=== PATIENT | female | born 1960 | race African-American/Black ===

== ENCOUNTER 2016-05-12 09:20 | Outpatient (CLI) | payer BC | END 2016-05-12 09:21 | disposition home or self-care (01) | DX: E11.9 Type 2 diabetes mellitus without complications (principal); E78.5 Hyperlipidemia, unspecified; I10 Essential (primary) hypertension ==

== ENCOUNTER 2016-11-19 15:35 | Outpatient (CLI) | payer BC ==
[2016-11-19 13:47] LABS: ALBUMIN/GLOBULIN RATIO 1.6 (1.0-2.2); BILIRUBIN,TOTAL 0.5 mg/dL (0.2-1.0); BUN - BLOOD UREA NITROGEN 18 mg/dL (6-20); CALCIUM 9.5 mg/dL (8.5-10.3); CARBON DIOXIDE - CO2 27 mmol/L (21-32); CHLORIDE 105 mmol/L (101-111); CHOL/HDL RATIO 3.2 (<4.4); CHOLESTEROL 216 mg/dL; CREATININE 0.8 mg/dL (0.4-1.0); GFR - MDRD 90 (>89); GLUCOSE 98 mg/dL (70-100); HDL CHOLESTEROL 67 mg/dL; POTASSIUM 3.9 mmol/L (3.5-5.0); SODIUM 139 mmol/L (135-145); TOTAL PROTEIN 8.2 g/dL (6.7-8.2); TRIGLYCERIDES 79 mg/dL; VLDL CHOLESTEROL 16 mg/dL
[2016-11-19 13:54] LABS: HEMOGLOBIN A1C 0.57 g/dL
== END 2016-11-19 15:36 | disposition home or self-care (01) ==
LOC: LAB.WCP 15:35
PROVIDERS: ATTEND Family Medicine
DX: R63.4 Abnormal weight loss (principal); E78.5 Hyperlipidemia, unspecified; E11.9 Type 2 diabetes mellitus without complications; I10 Essential (primary) hypertension
CPT/HCPCS: 36415; 80053; 80061; 82043; 83036

== ENCOUNTER 2017-01-31 13:09 | Observation (INO) | payer BC ==
[2017-01-31] MEDS ORDERED: NITROGLYCERIN SL 0.4 MG TABLET SL STA (14:16)
[2017-01-31] MEDS ORDERED: ASPIRIN CHEW 81 MG TABLET PO STA (14:16)
--- NOTE | 2017-01-31 14:21 | ED Physician Documentation ---
History of Present Illness - Stated complaint Stated Complaint: CHEST PX - Chief complaint Chief Complaint: Cardiac - Additonal information Additional information: hx from pt 56 f hx HTN DM and fhx CAD in 6th decade to ED with chest tightness onset 9 Am while at her desk at work 08/23 severity when i saw here no SOA NV diaphoresis had some ant R kumar discomfort and cramping yesterday but that resolved with OTC mm cramp med she is worried about a blood clot or heart attack Review of Systems Constitutional: denies: Fever, Chills Cardiac: reports: Chest pain / pressure Respiratory: denies: Dyspnea, Cough GI: denies: Abdominal Pain, Nausea, Vomiting Neurologic: denies: Generalized weakness Endocrine: denies: Easy bruising / bleeding Immunocompromised: denies: Immunocompromised PD PAST MEDICAL HISTORY - Past Medical History Past Medical History: Yes Cardiovascular: Hypertension, High cholesterol Respiratory: Pneumonia Neuro: None Endocrine/Autoimmune: Type 2 diabetes GI: None : None HEENT: None Psych: Claustrophobia Musculoskeletal: Osteoarthritis Derm: None - Past Surgical History General: Cholecystectomy 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 - Present Medications Home Medications: Ambulatory Orders Medication Instructions Recorded Confirmed Lisinopril 10 mg PO DAILY 02/21/14 01/31/17 Metformin HCl [Glucophage] 500 mg PO BID 02/21/14 01/31/17 - Allergies Allergies/Adverse Reactions: Allergies Allergy/AdvReac Type Severity Reaction Status Date / Time codeine AdvReac Severe Lethargic/ Verified 01/31/17 13:29 Headaches - Social History Does the pt smoke?: No Smoking Status: Former smoker Does the pt drink ETOH?: Yes ETOH Use: Wine, Liquor Does the pt have substance abuse?: No - Immunizations Immunizations are current?: Yes PD ED PE NORMAL - Vitals Vital signs reviewed: Yes - General General: Alert and oriented X 3 - HEENT HEENT: PERRL - Neck Neck: Supple, no meningeal sign - Cardiac Cardiac: RRR, Other (slihgt murmur RUSB) - Respiratory Respiratory: No respiratory distress, Clear bilaterally - Abdomen Abdomen: Soft, Non tender - Derm Derm: Normal color - Extremities Extremities: No deformity, No tenderness to palpate, Normal ROM s pain, No edema , No calf tenderness / cord - Neuro Neuro: Alert and oriented X 3 Results - Vitals Vitals: Vital Signs - 24 hr 01/31/17 01/31/17 01/31/17 13:15 13:52 14:02 Temperature 36.2 C L 36.1 C L Heart Rate 69 73 Respiratory 16 18 Rate Blood Pressure 158/80 H 142/76 H Blood Pressure 148/95 H [Right] O2 Saturation 100 100 01/31/17 01/31/17 01/31/17 14:27 14:35 14:40 Temperature Heart Rate 76 77 85 Respiratory Rate Blood Pressure 143/84 H 142/77 H 129/83 H Blood Pressure [Right] O2 Saturation 01/31/17 01/31/17 14:45 16:17 Temperature 37.0 C Heart Rate 78 70 Respiratory 16 Rate Blood Pressure 127/78 140/70 H Blood Pressure [Right] O2 Saturation 99 Oxygen O2 Source [Without Activity] Room air O2 Source Room air - EKG (time done) 1317 Rate: Rate (enter#) (69) Rhythm: NSR [place]: Normal Intervals: Normal CO Ischemia: Normal ST segments - Labs Labs: Laboratory Tests 01/31/17 01/31/17 01/31/17 14:23 14:23 14:23 WBC 8.6 RBC 4.28 Hgb 12.1 Hct 36.3 L MCV 84.9 MCH 28.4 MCHC 33.4 RDW 13.6 Plt Count 312 MPV 8.5 Neut # 6.1 Lymph # 1.9 Bacon # 0.4 Eos # 0.1 Baso # 0.1 Absolute Nucleated RBC 0.00 Nucleated RBC % 0.0 D-Dimer Sodium 139 Potassium 3.8 Chloride 100 L Carbon Dioxide 24 Anion Gap 15.0 H BUN 15 Creatinine 0.7 Estimated GFR (MDRD) 105 Glucose 91 Calcium 10.0 Total Bilirubin 0.7 AST 18 ALT 16 Alkaline Phosphatase 54 Troponin I < 0.04 Total Protein 8.5 H Albumin 5.1 Globulin 3.4 Albumin/Globulin Ratio 1.5 Lipase 39 01/31/17 14:23 WBC RBC Hgb Hct MCV MCH MCHC RDW Plt Count MPV Neut # Lymph # Bacon # Eos # Baso # Absolute Nucleated RBC Nucleated RBC % D-Dimer < 200.0 L Sodium Potassium Chloride Carbon Dioxide Anion Gap BUN Creatinine Estimated GFR (MDRD) Glucose Calcium Total Bilirubin AST ALT Alkaline Phosphatase Troponin I Total Protein Albumin Globulin Albumin/Globulin Ratio Lipase PD MEDICAL DECISION MAKING - ED course ED course: EKG s acute ischemia but numerous risk factors and HEART score 5 - will obs for LISSETH and stress age > 50 so cannot PERC but neg d dimer so doubt PE pain gone after nitro will admit tele obs Departure - Departure Disposition: ED Place in Observation Clinical Impression: Chest pain, rule out acute myocardial infarction Condition: Good
[2017-01-31 14:32] LABS: BASOPHILS # (AUTO) 0.1 10^3/uL (0.0-0.1); BASOPHILS % (AUTO) 0.9 %; EOSINOPHILS # (AUTO) 0.1 10^3/uL (0.0-0.7); HCT - HEMATOCRIT 36.3 % (37.0-47.0); HGB - HEMOGLOBIN 12.1 g/dL (12.0-16.0); LYMPHOCYTES # (AUTO) 1.9 10^3/uL (1.5-3.5); MEAN CORPUSCULAR HEMOGLOBIN 28.4 pg (27.0-31.0); MEAN CORPUSCULAR HGB CONC 33.4 g/dL (32.0-36.0); MEAN CORPUSCULAR VOLUME 84.9 fL (81.0-99.0); MEAN PLATELET VOLUME 8.5 fL (7.9-10.8); MONOCYTES # (AUTO) 0.4 10^3/uL (0.0-1.0); NEUTROPHILS # (AUTO) 6.1 10^3/uL (1.5-6.6); NEUTROPHILS % (AUTO) 71.1 %; RED BLOOD COUNT 4.28 10^6/uL (4.20-5.40); RED CELL DISTRIBUTION WIDTH 13.6 % (12.0-15.0); UNCORRECTED WHITE BLOOD COUNT 8.6 x10^3/uL; WHITE BLOOD COUNT 8.6 x10^3/uL (4.8-10.8)
[2017-01-31 14:46] LABS: ALBUMIN/GLOBULIN RATIO 1.5 (1.0-2.2); BILIRUBIN,TOTAL 0.7 mg/dL (0.2-1.0); CREATININE 0.7 mg/dL (0.4-1.0); POTASSIUM 3.8 mmol/L (3.5-5.0); TOTAL PROTEIN 8.5 g/dL (6.7-8.2)
--- NOTE | 2017-01-31 16:32 | XRAY Preliminary Report ---
Exam: XR CHEST 1 VIEW IMPRESSION: Normal single view chest. [facility] SITE ID: [id number]
--- NOTE | 2017-01-31 16:34 | XRAY Report ---
EXAM: CHEST RADIOGRAPHY EXAM DATE: 01/31/2017 04:26 PM. CLINICAL HISTORY: Chest pain and shortness of breath. COMPARISON: None. TECHNIQUE: 1 view. FINDINGS: Lungs/Pleura: No focal opacities evident. No pleural effusion. No pneumothorax. Mediastinum: Within exam limitations, the cardiomediastinal contour is normal. Other: No bony abnormality identified. IMPRESSION: Normal single view chest. [facility] Referring Provider Line: [phone] SITE ID: [id number]
[2017-01-31] MEDS ORDERED: NITROGLYCERIN SL 0.4 MG TABLET SL PRN (16:59)
[2017-01-31] MEDS ORDERED: ONDANSETRON 4 MG/2 ML VIAL IVP PRN (17:05)
[2017-01-31] MEDS ORDERED: ACETAMINOPHEN 325 MG TABLET PO PRN (17:05)
[2017-01-31] MEDS ORDERED: SODIUM CHLORIDE FLUSH 0.9% 10 ML SYRINGE IVP PRN (17:05)
--- NOTE | 2017-01-31 17:23 | HISTORY & PHYSICAL EXAMINATION ---
Chief Complaint - Chief Complaint Chief Complaint: chest tightness History of Present Illness - Admitted From Admitted From:: ER - History Obtained From History obtained from: Pt - History of Present Illness HPI Comment/Other: This is a 56-year-old Sara Turkish female with a past medical history significant for HTN, DM2, HLD, CAD, who present ER for complaints of chest pain and chest tightness. Pt state she started her regular work at morning around 9 am, she begin to have chest pain at her left breast area. Her pain at pain scale is 7/10. The pain is not radiated to other locations. Nitro given 3 times and Aspirin 324 mg did help pt release her chest pain per pt's state. She state she did feel mild difficult to breathing as well when she had chest pain. Pt denies nausea, vomiting, diaphoresis is associated with her chest pain. Pt denies other symptoms. Initiate Troponin and EKG are unremarkable. CXR is no acute finding. D-Dimer is unremarkable. Lab test in the ER are unremarkable. Pt is admitted in observation floor for R/O IL. 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 She had one daughter at . She with her and lived at [facility]. Living arrangement: At home Living Situation: With spouse/s.o. - Substance History Use: Uses substance without health or social issues: NONE Abuse: Recurrent use of substance despite neg consequences: NONE Dependence: Experiences withdrawal or developed tolerances: NONE - POLST POLST Status: Full Code Meds/Allgy - Home Medications Home Medications: Ambulatory Orders Medication Instructions Recorded Confirmed Lisinopril 20 mg PO DAILY 02/21/14 01/31/17 Metformin HCl [Metformin HCl ER] 500 mg PO BID 01/31/17 01/31/17 - Allergies Allergies/Adverse Reactions: Allergies Allergy/AdvReac Type Severity Reaction Status Date / Time codeine AdvReac Severe Lethargic/ Verified 01/31/17 13:29 Headaches Review of Systems - Constitutional Constitutional: denies: Fatigue, Fever, Chills, Malaise, Weakness, Poor appetite , Diaphoresis, Night sweats - Eyes Eyes: denies: Pain, Irritation, Amaurosis, Blurred vision, Spots in vision, Field loss, Vision loss, Dipolpia - Ears, Nose & Throat Ears, Nose & Throat: denies: Ear pain, Hearing loss, Hearing aids, Tinnitus, Vertigo, Nasal pain, Nasal discharge, Nosebleeds, Nasal congestion, Dentures, Sore throat, Mouth lesions, Bleeding gums - Cardiovascular Cariovascular: reports: Chest pain. denies: Irregular heart rate, Palpitations , Edema, Lightheadedness, Syncope, Exertional dyspnea, Decr. exercise tolerance - Respiratory Respiratory: denies: Cough, Sputum production, Wheezing, Snoring, Hemoptysis, Orthopnea, SOB at rest, SOB with exertion, Apnea - Gastrointestinal Gastrointestinal: denies: Abdominal pain, Abdominal distention, Constipation, Diarrhea, Change in bowel habits, Rectal bleeding, Black stools, Bloody stools, Nausea, Vomiting, Boaz blood emesis, Coffee grounds emesis, Reflux/heartburn, Bloating, Poor appetite - Genitourinary Genitourinary: denies: Dysuria, Frequency, Urgency, Hematuria, Incontinence, Flank pain, Nocturia, Urethral discharge - Musculoskeletal Musculoskeletal: denies: Muscle pain, Back pain, Muscle aches, Stiffness, Limited range of motion, Muscle weakness, Gout, Joint pain - Integumentary Integumentary: denies: Rash, Pruritis, Lesions, Dryness, Lumps, Acne, Pigment changes - Neurological Neurological: denies: General weakness, Focal weakness, Headache, Dizziness, Numbness, Memory problems, Pre-existing deficit, Abnormal gait, Seizures, Incoordination, Slurred speech - Psychiatric Psychiatric: denies: Depression, Anxiety, Suicidal, Delusions, Hallucinations, Homicidal - Endocrine Endocrine: denies: Polyuria, Polydypsia, Polyphagia, Intolerance to cold, Intolerance to heat - Hematologic/Lymphatic Hematologic/Lymphatic: denies: Anemia, Bruising, Petechiae, Blood clots, Lymphadenopathy, Bleeding tendencies Exam - Vital Signs Reviewed Vital Signs: Yes Vital Signs: Vital Signs x48h Temp Pulse Resp BP BP Pulse Ox 01/31/17 16:17 37.0 C 70 16 140/70 H 99 01/31/17 14:45 78 127/78 01/31/17 14:40 85 129/83 H 01/31/17 14:35 77 142/77 H 01/31/17 14:27 76 143/84 H 01/31/17 14:02 36.1 C L 73 18 142/76 H 100 01/31/17 13:52 148/95 H 01/31/17 13:15 36.2 C L 69 16 158/80 H 100 - Physical Exam General Appearance: positive: No acute distress, Alert. negative: Lethargic Eyes Bilateral: positive: Normal inspection, PERRL, No lid inflammation, Conjunctivae nml ENT: positive: ENT inspection nml, Pharynx nml, No signs of dehydration. negative: Purulent nasal drainage, Pharyngeal erythema, Oral lesions Neck: positive: Nml inspection, Thyroid nml, No JVD, Trachea midline. negative : Thyromegaly, Lymphadenopathy (R), Lymphadenopathy (L), Stiff neck, Carotid bruit, Swelling/bruising, Tracheal deviation Respiratory: positive: Chest non-tender, No respiratory distress, Breath sounds nml. negative: Wheezes, Rales, Rhonchi Cardiovascular: positive: Regular rate & rhythm, No murmur, No gallop. negative : Irregularly irregular, Extrasystoles, Tachycardia, Bradycardia, Systolic murmur, Diastolic murmur Peripheral Pulses: positive: 2+ Abdomen: positive: Non-tender, No organomegaly, Nml bowel sounds, No distention. negative: Tenderness, Guarding, Rebound, Abnml bowel sounds Back: positive: Nml inspection. negative: CVA tenderness (R), CVA tenderness (L ) Skin: positive: Color nml, No rash, Warm, Dry. negative: Cyanosis, Diaphoresis , Pallor Extremities: positive: Non-tender, Full ROM, Nml appearance. negative: Pedal edema, Calf tenderness, Joint swelling, Heaven's sign/cords Neurologic/Psychiatric: positive: Oriented x3, Motor nml, Sensation nml, Mood/ affect nml. negative: Weakness, Sensory loss, Facial droop, Slurred/abnml speech, Depressed mood/affect Conclusion/Plan - Problem List (1) Chest pain, rule out acute myocardial infarction Conclusion/Plan: pt with risk factor of HTN, DM2, HLD. Aspirin and Nitro release pt's chest pain Troponin serial Nitro PRN Aspirin 81 mg daily, pt was given 325 mg in ER on tele, vital monitor ECHO stress test, pt with significant risk factor NPO after midnight for stress test (2) HTN (hypertension) Conclusion/Plan: stable, resume home meds vital monitor (3) DM2 (diabetes mellitus, type 2) Conclusion/Plan: Hold Metformin start slide scale, hypoglycemia protocol check A1C (4) Hyperlipidemia Conclusion/Plan: recheck lipid panel resume of home meds Atorvastatin (5) DVT prophylaxis Conclusion/Plan: SCD and lovenox (6) Full code status Conclusion/Plan: pt request full code - Lab Results Fish Bones: 01/31/17 14:23 01/31/17 14:23 Issues/Core Measures - Anticipated LOS Anticipated Stay Length: Less than 2 midnights (less than two midnights expected.) - [facility] Requirement for [facility] I expect patient to be DC'd or transferred within 96 hours.: Yes
[2017-01-31 17:38] LABS: HEMOGLOBIN A1C 0.57 g/dL
[2017-01-31] MEDS: SODIUM CHLORIDE 0.9% 1,000 ML IV SCH (18:57)
[2017-01-31] MEDS: SODIUM CHLORIDE FLUSH 0.9% 10 ML SYRINGE IVP SCH (19:00)
[2017-01-31] MEDS: INSULIN ASPART 300 UNIT/3 ML PEN SUBQ SCH (21:59)
[2017-02-01 05:26] LABS: BASOPHILS % (AUTO) 0.7 %; EOSINOPHILS # (AUTO) 0.1 10^3/uL (0.0-0.7); EOSINOPHILS % (AUTO) 1.5 %; HCT - HEMATOCRIT 34.9 % (37.0-47.0); HGB - HEMOGLOBIN 11.2 g/dL (12.0-16.0); LYMPHOCYTES # (AUTO) 1.9 10^3/uL (1.5-3.5); LYMPHOCYTES % (AUTO) 32.5 %; MEAN CORPUSCULAR HEMOGLOBIN 27.5 pg (27.0-31.0); MEAN CORPUSCULAR VOLUME 85.9 fL (81.0-99.0); MONOCYTES # (AUTO) 0.3 10^3/uL (0.0-1.0); MONOCYTES % (AUTO) 5.5 %; NEUTROPHILS # (AUTO) 3.5 10^3/uL (1.5-6.6); NEUTROPHILS % (AUTO) 59.8 %; RED BLOOD COUNT 4.06 10^6/uL (4.20-5.40); RED CELL DISTRIBUTION WIDTH 13.5 % (12.0-15.0); UNCORRECTED WHITE BLOOD COUNT 5.8 x10^3/uL; WHITE BLOOD COUNT 5.8 x10^3/uL (4.8-10.8)
[2017-02-01 05:40] LABS: ALBUMIN/GLOBULIN RATIO 1.2 (1.0-2.2); BILIRUBIN,TOTAL 0.9 mg/dL (0.2-1.0); BUN - BLOOD UREA NITROGEN 12 mg/dL (6-20); CARBON DIOXIDE - CO2 24 mmol/L (21-32); CHLORIDE 107 mmol/L (101-111); CHOL/HDL RATIO 3.7 (<4.4); CHOLESTEROL 169 mg/dL; CREATININE 0.7 mg/dL (0.4-1.0); GFR - MDRD 105 (>89); GLUCOSE 104 mg/dL (70-100); HDL CHOLESTEROL 46 mg/dL; LDL/HDL RATIO 2.3 (<4.4); POTASSIUM 3.8 mmol/L (3.5-5.0); SODIUM 141 mmol/L (135-145); TOTAL PROTEIN 7.1 g/dL (6.7-8.2); TRIGLYCERIDES 78 mg/dL; VLDL CHOLESTEROL 16 mg/dL
[2017-02-01] MEDS: SODIUM CHLORIDE FLUSH 0.9% 10 ML SYRINGE IVP SCH ×2 (06:08→14:18)
[2017-02-01] MEDS: SODIUM CHLORIDE 0.9% 1,000 ML IV SCH (06:24)
[2017-02-01] MEDS ORDERED: GI COCKTAIL 120 ML BOTTLE PO ONE (08:20)
[2017-02-01] MEDS: INSULIN ASPART 300 UNIT/3 ML PEN SUBQ SCH ×2 (08:46→14:17)
[2017-02-01] MEDS ORDERED: POLYETHYLENE GLYCOL 3350 17 GM PACKET PO SCH (09:00)
[2017-02-01] MEDS ORDERED: ASPIRIN CHEW 81 MG TABLET PO SCH (09:00)
[2017-02-01] MEDS ORDERED: PANTOPRAZOLE 40 MG TABLET PO SCH (09:00)
[2017-02-01] MEDS ORDERED: FAMOTIDINE 20 MG TABLET PO SCH (09:00)
[2017-02-01] MEDS ORDERED: LISINOPRIL 5 MG TABLET PO SCH (09:00)
[2017-02-01] MEDS ORDERED: ENOXAPARIN 40 MG/0.4 ML SYRINGE SUBQ SCH (09:00)
--- NOTE | 2017-02-01 12:38 | Discharge Plan ---
Discharge Plan Disposition: Home, Self Care Condition: Good Prescriptions: Pantoprazole [Protonix] 40 mg PO BID #30 tablet Diet: Diabetic Activity Restrictions: No Restrictions Shower Restrictions: No Driving Restrictions: No Weight Bearing: Full Weight Additional Instructions or Follow Up instructions: You were admitted overnight for rule out myocardial infarction. All of your lab results were negative. The Myocardial perfusion test was negative for ischemia and you passed your treadmill stress test with an optimal heart rate. Please see PCP as a follow up to this hospital stay. Take your newly prescribed proton pump inhibitor to control heartburn symptoms. No Smoking: If you smoke, Please STOP! Call for help. Follow-up with: Refugio Stevens MD [Primary Care Provider] -
--- NOTE | 2017-02-01 12:38 | DISCHARGE SUMMARY ---
Discharge Summary Admit Date: 01/31/17 Discharge Date: 02/01/17 Discharging Provider: RENNY Sánchez Primary Care Provider: Isael Stevens Code Status: Attempt Resuscitation Condition at Discharge: Good Discharge Disposition: Home, Self Care - DIAGNOSES Admission Diagnoses: Chest pain, unspecified (R07.9) Essential (primary) hypertension (I10) Type 2 diabetes mellitus without complications (E11.9) Hyperlipidemia, unspecified (E78.5) Discharge Diagnoses with Status of Each Condition: Chest pain (R07.9)-ongoing, ruled out for cardiac ischemia, stable and controlled. Heartburn (R12) -ongoing, controlled. HTN (hypertension) (I10) stable controlled, medically managed. DM2 (diabetes mellitus, type 2) (E11.9) stable, controlled medically and diet controlled. Hyperlipidemia (E78.5)-ongoing, diet and medically managed. - HPI History of Present Illness: Dahiana Quintero is a 56-year-old Sara Bangladeshi female with a past medical history of HTN, DM2, HLD, CAD, who presented to the ER for complaints of chest pain and chest tightness. Patient claims she started her regular work day around 9 am, when she began to have chest pain at her left breast area, without radiation. She rated her pain as 7 out of 10. Nitro was given 3 times and Aspirin 324 mg. She did have mild relief. She admitted to mild SOB. Patient denies nausea, vomiting, diaphoresis is associated with her chest pain. Troponin and EKG are unremarkable. CXR is no acute finding. D-Dimer is unremarkable. Lab tests in the ER are unremarkable. Patient will be admitted in observation for rule out MD. - HOSPITAL COURSE Hospital Course: Patient had an uneventful night with no notable telemetry changes. Negative troponins, normal echocardiogram and negative stress, myocardial perfusion scan. Patient has ongoing heartburn, so a PPI was prescribed. She was discharged home with with only mild symptoms. - ALLERGIES Allergies/Adverse Reactions: Allergies Allergy/AdvReac Type Severity Reaction Status Date / Time zoltan Vicenteac Severe Lethargic/ Verified 01/31/17 13:29 Headaches - MEDICATIONS Home Medications: Ambulatory Orders Medication Instructions Recorded Confirmed Lisinopril 20 mg PO DAILY 02/21/14 01/31/17 Metformin HCl [Metformin HCl ER] 500 mg PO BID 01/31/17 01/31/17 Pantoprazole [Protonix] 40 mg PO BID #30 tablet 02/01/17 - PHYSICAL EXAM AT DISCHARGE General Appearance: positive: No acute distress, Alert Eyes Bilateral: positive: Normal inspection, PERRL ENT: positive: ENT inspection nml, Pharynx nml, No signs of dehydration Neck: positive: Nml inspection, Thyroid nml, No JVD, Trachea midline Respiratory: positive: Chest non-tender, No respiratory distress, Breath sounds nml Cardiovascular: positive: Regular rate & rhythm, No murmur, No gallop Peripheral Pulses: positive: 2+ Abdomen: positive: Non-tender, No organomegaly, Nml bowel sounds, No distention Back: positive: Nml inspection Skin: positive: Color nml, No rash, Warm, Dry Extremities: positive: Non-tender, Full ROM, Nml appearance, No pedal edema Neurologic/Psychiatric: positive: Oriented x3, CN's nml (2-12), Motor nml, Sensation nml, Mood/affect nml Reflexes: Bicep (R): 3+, Bicep (L): 3+ - LABS Result Diagrams: 02/01/17 04:31 02/01/17 04:31 - DIAGNOSTIC IMAGING Diagnostic Imaging Results: Final report reviewed Diagnostic Imaging Results Comments: Myocardial perfusion stress test 02/01/17: FINDINGS: Perfusion images: Left ventricular chamber size is normal at rest and unchanged at stress. No convincing fixed perfusion deficits. No convincing reversible perfusion deficits. Gated images: No focal wall motion abnormality. The left ventricular ejection fraction is estimated at 73% (normal > 50%). IMPRESSION: 1. No convincing reversible perfusion deficits to indicate stress-induced ischemia. 2. No convincing fixed perfusion deficits. 3. Left ventricular ejection fraction of 73% (normal > 50%). 4. No focal wall motion abnormalities. Chest x-ray 01/31/17: FINDINGS: Lungs/Pleura: No focal opacities evident. No pleural effusion. No pneumothorax. Mediastinum: Within exam limitations, the cardiomediastinal contour is normal. Other: No bony abnormality identified. IMPRESSION: Normal single view chest. Echocardiogram 02/01/17: LV is normally sized with and EF of 70-75%. Trace mitral/tricuspid regurg, normal RV systolic pressure <35mmHg. The RVSP at rest is 26mmHg. Trace to mild (+1) pulmonic regurg. The interatrial septum appears normal. - FOLLOW UP Follow Up: You were admitted overnight for rule out myocardial infarction. All of your lab results were negative. The Myocardial perfusion test was negative for ischemia and you passed your treadmill stress test with an optimal heart rate. Please see PCP as a follow up to this hospital stay. Take your newly prescribed proton pump inhibitor to control heartburn symptoms. Patient provided with a work excuse note and teaching re: GERD. - TIME SPENT Time Spent in Discharge (Minutes): 60
--- NOTE | 2017-02-01 14:18 | Nuclear Medicine Prelim Report ---
Exam: NM MYOCARDIAL PERFUSION STR/RST IMPRESSION: 1. No convincing reversible perfusion deficits to indicate stress-induced ischemia. 2. No convincing fixed perfusion deficits. 3. Left ventricular ejection fraction of 73% (normal > 50%). 4. No focal wall motion abnormalities. [facility] SITE ID: [id number]
--- NOTE | 2017-02-01 14:21 | Nuclear Medicine Report ---
EXAM: SINGLE-ISOTOPE EXERCISE STRESS TEST. SINGLE-ISOTOPE AND ONE-DAY REST/STRESS MYOCARDIAL PERFUSION SCAN S WITH TOMOGRAPHIC IMAGING, QUANTITATIVE ANALYSIS, WALL MOTION ANALYSIS AND CALCULATION OF EJECTION F RACTION. EXAM DATE: 02/01/2017 10:46 AM. CLINICAL HISTORY: Chest pain. COMPARISON: None. TECHNIQUE: A rest myocardial perfusion scan was done with tomography after the intravenous administration of 9.5 mCi Tc-99m sestamibi. After an appropriate delay, a treadmill exercise stress was performed according to department protoco l. The patient exercised for 6 minutes and 48 seconds. The maximum heart rate was 165 bpm, which was 90% of the maximum predicted heart rate of 140 bpm. At approximately peak heart rate, 42.7 mCi of Tc- 99m sestamibi was injected for stress myocardial perfusion scan. Motion correction was applied when a ppropriate. Gated tomographic images were obtained for wall motion analysis and computation of left ventricular e jection fraction. FINDINGS: Perfusion images: Left ventricular chamber size is normal at rest and unchanged at stress. No convincing fixed perfusion deficits. No convincing reversible perfusion deficits. Gated images: No focal wall motion abnormality. The left ventricular ejection fraction is estimated at 73% (normal > 50%). IMPRESSION: 1. No convincing reversible perfusion deficits to indicate stress-induced ischemia. 2. No convincing fixed perfusion deficits. 3. Left ventricular ejection fraction of 73% (normal > 50%). 4. No focal wall motion abnormalities. [facility] Referring Provider Line: [phone] SITE ID: [id number]
[2017-02-01 15:52] VITALS: BP 129/72
--- NOTE | 2017-02-01 18:31 | CARDIAC PROCEDURE NOTE ---
[address] [address] Cardiac Procedure Note Patient: YAYO VICENTE Admit Date: 01/31/17 Discharge Date: 02/01/17 DOS: 02/01/2017 Physician: Esmer Amado MD LOCATION: Observation. DATE OF PROCEDURE 02/01/2017. After signing informed consent, the patient underwent a treadmill stress test with myocardial perfusion imaging. Resting EKG: Normal sinus rhythm and within normal limits. Patient exercised for 7 minutes on a [id number] standard Jluis protocol. The patient developed mild to moderate shortness of breath. Patient had 1/10 chest pain before test, which was no different during the entire exercise, it did not increase. Patient achieved 8 METS. Resting heart rate 80 with sinus arrhythmia. Peak heart rate 150 (91% predicted maximum heart rate for age). Resting blood pressure 140/80. Peak blood pressure 180/80. EKG at peak: No ischemic changes. IMPRESSION 1. Good exercise tolerance. 2. Normal exercise stress test by EKG criteria to 91% predicted maximum heart rate for age. NUCLEAR IMAGES: Reported separately. Esmer Amado MD [facility] TD: 02/01/2017 15:07 [facility] [place]
== END 2017-02-01 15:59 | disposition home or self-care (01) ==
LOC: ED 13:09 → OBS 17:05
PROVIDERS: ADMIT Nurse Practitioner Gerontology; ATTEND Nurse Practitioner
DX: R07.89 Other chest pain (principal); R12 Heartburn; I10 Essential (primary) hypertension; E11.9 Type 2 diabetes mellitus without complications; E78.5 Hyperlipidemia, unspecified; Z82.49 Family history of ischemic heart disease and other diseases of the circulatory system; Z87.01 Personal history of pneumonia (recurrent); Z79.84 Long term (current) use of oral hypoglycemic drugs; Z87.891 Personal history of nicotine dependence; Z86.79 Personal history of other diseases of the circulatory system
CPT/HCPCS: 36415; 71010; 78452; 80053; 80061; 83036; 83690; 84484; 85025; 85379; 93005; 93017; 93306; 99218; 99284; A9270; A9500; 99283

== ENCOUNTER 2017-05-26 17:13 | Outpatient (CLI) | payer BC ==
[2017-05-26 12:42] LABS: ALBUMIN 4.8 g/dL (3.2-5.5); ALBUMIN/GLOBULIN RATIO 1.6 (1.0-2.2); ALKALINE PHOSPHATASE 45 IU/L (42-121); ALT ALANINE AMINOTRANSFERASE 11 IU/L (10-60); AST ASPARTATE AMINOTRANSFERASE 21 IU/L (10-42); BILIRUBIN,TOTAL 0.4 mg/dL (0.2-1.0); BUN - BLOOD UREA NITROGEN 14 mg/dL (6-20); CALCIUM 9.4 mg/dL (8.5-10.3); CARBON DIOXIDE - CO2 26 mmol/L (21-32); CHLORIDE 105 mmol/L (101-111); CHOL/HDL RATIO 4.1 (<4.4); CHOLESTEROL 207 mg/dL; CREATININE 0.8 mg/dL (0.4-1.0); GFR - MDRD 90 (>89); GLUCOSE 126 mg/dL (70-100); HDL CHOLESTEROL 50 mg/dL; LDL CHOLESTEROL,CALCULATED 143 mg/dL; LDL/HDL RATIO 2.9 (<4.4); SODIUM 138 mmol/L (135-145); TOTAL PROTEIN 7.8 g/dL (6.7-8.2); VLDL CHOLESTEROL 14 mg/dL
[2017-05-26 15:27] LABS: HB2 TOTAL 12.9 g/dL; HEMOGLOBIN A1C 0.58 g/dL; HEMOGLOBIN A1C % 6.3 % (4.6-6.2)
== END 2017-05-26 17:14 | disposition home or self-care (01) ==
LOC: LAB.WCP 17:13
PROVIDERS: ATTEND Family Medicine
DX: E78.5 Hyperlipidemia, unspecified (principal); E11.9 Type 2 diabetes mellitus without complications; I10 Essential (primary) hypertension
CPT/HCPCS: 36415; 80053; 80061; 82043; 83036; 83721

== ENCOUNTER 2017-11-24 08:31 | Outpatient (CLI) | payer BC ==
[2017-11-24 13:00] LABS: ALBUMIN 4.3 g/dL (3.2-5.5); ALBUMIN/GLOBULIN RATIO 1.4 (1.0-2.2); ALKALINE PHOSPHATASE 59 IU/L (42-121); ALT ALANINE AMINOTRANSFERASE 20 IU/L (10-60); AST ASPARTATE AMINOTRANSFERASE 23 IU/L (10-42); BILIRUBIN,TOTAL 0.6 mg/dL (0.2-1.0); BUN - BLOOD UREA NITROGEN 15 mg/dL (6-20); CALCIUM 9.2 mg/dL (8.5-10.3); CARBON DIOXIDE - CO2 22 mmol/L (21-32); CHLORIDE 105 mmol/L (101-111); CHOL/HDL RATIO 3.7 (<4.4); CHOLESTEROL 180 mg/dL; CREATININE 0.6 mg/dL (0.4-1.0); GFR - MDRD 125 (>89); GLUCOSE 109 mg/dL (70-100); HDL CHOLESTEROL 49 mg/dL; LDL CHOLESTEROL,CALCULATED 116 mg/dL; LDL/HDL RATIO 2.4 (<4.4); SODIUM 136 mmol/L (135-145); TOTAL PROTEIN 7.4 g/dL (6.7-8.2); VLDL CHOLESTEROL 15 mg/dL
[2017-11-24 13:29] LABS: HB2 TOTAL 12.2 g/dL; HEMOGLOBIN A1C 0.52 g/dL; HEMOGLOBIN A1C % 6.1 % (4.6-6.2)
== END 2017-11-24 08:32 | disposition home or self-care (01) ==
LOC: LAB.WCP 08:31
PROVIDERS: ATTEND Family Medicine
DX: E78.5 Hyperlipidemia, unspecified (principal); E11.9 Type 2 diabetes mellitus without complications; I10 Essential (primary) hypertension
CPT/HCPCS: 36415; 80053; 80061; 82043; 83036; 83721

== ENCOUNTER 2018-06-07 08:00 | Outpatient (CLI) | payer BC ==
[2018-06-07 15:25] LABS: BASOPHILS % (AUTO) 0.3 %; EOSINOPHILS # (AUTO) 0.1 10^3/uL (0.0-0.7); EOSINOPHILS % (AUTO) 1.1 %; HGB - HEMOGLOBIN 12.2 g/dL (12.0-16.0); LYMPHOCYTES # (AUTO) 1.7 10^3/uL (1.5-3.5); LYMPHOCYTES % (AUTO) 31.1 %; MEAN CORPUSCULAR HEMOGLOBIN 27.3 pg (27.0-31.0); MEAN CORPUSCULAR VOLUME 85.2 fL (81.0-99.0); MEAN PLATELET VOLUME 10.1 fL (7.9-10.8); MONOCYTES # (AUTO) 0.3 10^3/uL (0.0-1.0); NEUTROPHILS # (AUTO) 3.3 10^3/uL (1.5-6.6); NEUTROPHILS % (AUTO) 61.5 %; PLT - PLATELET COUNT 217 10^3/uL (130-450); RED BLOOD COUNT 4.48 10^6/uL (4.20-5.40); RED CELL DISTRIBUTION WIDTH 13.9 % (12.0-15.0); WHITE BLOOD COUNT 5.3 x10^3/uL (4.8-10.8)
[2018-06-07 15:55] LABS: ALBUMIN 4.7 g/dL (3.2-5.5); ALBUMIN/GLOBULIN RATIO 1.5 (1.0-2.2); ALKALINE PHOSPHATASE 57 IU/L (42-121); ALT ALANINE AMINOTRANSFERASE 15 IU/L (10-60); AST ASPARTATE AMINOTRANSFERASE 20 IU/L (10-42); BILIRUBIN,TOTAL 0.9 mg/dL (0.2-1.0); BUN - BLOOD UREA NITROGEN 12 mg/dL (6-20); CALCIUM 9.5 mg/dL (8.5-10.3); CARBON DIOXIDE - CO2 26 mmol/L (21-32); CHLORIDE 103 mmol/L (101-111); CHOL/HDL RATIO 3.7 (<4.4); CHOLESTEROL 194 mg/dL; CREATININE 0.8 mg/dL (0.4-1.0); GFR - MDRD 90 (>89); GLUCOSE 104 mg/dL (70-100); HDL CHOLESTEROL 52 mg/dL; LDL CHOLESTEROL,CALCULATED 130 mg/dL; LDL/HDL RATIO 2.5 (<4.4); SODIUM 139 mmol/L (135-145); TOTAL PROTEIN 7.9 g/dL (6.7-8.2); VLDL CHOLESTEROL 12 mg/dL
[2018-06-07 16:26] LABS: HB2 TOTAL 13.2 g/dL; HEMOGLOBIN A1C 0.57 g/dL; HEMOGLOBIN A1C % 6.1 % (4.6-6.2)
== END 2018-06-07 23:59 | disposition home or self-care (01) ==
LOC: LAB.WCP 08:00
PROVIDERS: ATTEND Family Medicine
DX: E11.9 Type 2 diabetes mellitus without complications (principal)
CPT/HCPCS: 36415; 80053; 80061; 82043; 83036; 83721; 84443; 85025

== ENCOUNTER 2019-01-18 12:12 | Outpatient (CLI) | payer BC ==
--- NOTE | 2019-01-19 12:55 | XRAY Report ---
Reason: LEFT SHOULDER PAIN Procedure Date: 01/18/2019 Accession Number: [id number] / [id number] Procedure: WCP - Shoulder 2 View LT CPT Code: Final Report FULL RESULT: EXAM: LEFT SHOULDER RADIOGRAPHY EXAM DATE: 01/18/2019 12:12 PM. CLINICAL HISTORY: LEFT SHOULDER PAIN, nontraumatic. COMPARISON: None. TECHNIQUE: 2 views. FINDINGS: Bones: Normal. No fracture or bone lesion. Joints: The glenohumeral and acromioclavicular joints are normal. Soft tissues: The visualized hemithorax is unremarkable. No soft tissue swelling. IMPRESSION: Normal shoulder radiography. [facility]
== END 2019-01-18 23:59 | disposition home or self-care (01) ==
LOC: DI.WCP 12:12
PROVIDERS: ATTEND Family Medicine
DX: M25.512 Pain in left shoulder (principal)

== ENCOUNTER 2019-04-12 10:14 | Emergency (ER) | payer BC ==
[2019-04-12] MEDS ORDERED: ONDANSETRON ODT 4 MG TABLET TL STA (11:45)
--- NOTE | 2019-04-12 11:54 | ED Physician Documentation ---
History of Present Illness - Stated complaint Stated Complaint: FLU LIKE SYMPTOMS - Chief complaint Chief Complaint: Heent - History obtained from History obtained from: Patient - History of Present Illness Timing: How many days ago (5) - Additonal information Additional information: Patient comes emergency department complaining of progressive illness that sta rted 5 days ago. She thinks she started with a scratchy throat and progressed to a cough, rhinorrhea, and then since yesterday evening, nausea and vomiting. Patient states that her stomach is empty now and she does not feel that she has anything else to vomit. She states that she has not had any fevers. She was supposed to work today tomorrow and the next day, but is not feeling well. Patient is a type II diabetic, but states that her blood sugars have been fairly well controlled. She denies any complications of her diabetes that she knows of. She states that she has a history of hypertension and is on medication for this as well. No other complaints at this time Review of Systems Ten Systems: 10 systems reviewed and negative Constitutional: reports: Reviewed and negative Eyes: reports: Reviewed and negative Ears: reports: Reviewed and negative Nose: reports: Rhinorrhea / runny nose Throat: reports: Sore throat Cardiac: reports: Reviewed and negative Respiratory: reports: Reviewed and negative GI: reports: Nausea, Vomiting : reports: Reviewed and negative Skin: reports: Reviewed and negative Musculoskeletal: reports: Reviewed and negative Neurologic: reports: Reviewed and negative Psychiatric: reports: Reviewed and negative Endocrine: reports: Reviewed and negative Immunocompromised: reports: Reviewed and negative PD PAST MEDICAL HISTORY - Past Medical History Cardiovascular: Hypertension, High cholesterol Respiratory: Pneumonia Endocrine/Autoimmune: Type 2 diabetes GI: None : None HEENT: None Psych: Claustrophobia Musculoskeletal: Osteoarthritis Derm: None - Past Surgical History Past Surgical History: Yes General: Cholecystectomy Ortho: 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 - Present Medications Home Medications: Ambulatory Orders Medication Instructions Recorded Confirmed lisinopriL [Lisinopril] 20 mg PO DAILY 02/21/14 01/31/17 Metformin HCl [Metformin ER 500 mg PO BID 01/31/17 01/31/17 Osmotic] Pantoprazole [Protonix] 40 mg PO BID #30 tablet 02/01/17 Ondansetron Odt [Zofran Odt] 4 mg TL Q6H PRN #10 tablet 04/12/19 - Allergies Allergies/Adverse Reactions: Allergies Allergy/AdvReac Type Severity Reaction Status Date / Time codeine AdvReac Severe Lethargic/ Verified 04/12/19 10:22 Headaches - Social History Does the pt smoke?: No Smoking Status: Never smoker Does the pt drink ETOH?: Yes ETOH Use: Wine Does the pt have substance abuse?: No - Immunizations Immunizations are current?: Yes - POLST POLST Status: Full Code PD ED PE NORMAL - Vitals Vital signs reviewed: Yes - General General: Alert and oriented X 3, No acute distress - HEENT HEENT: Atraumatic, PERRL - Neck Neck: Supple, no meningeal sign - Cardiac Cardiac: RRR, No murmur - Respiratory Respiratory: Clear bilaterally - Abdomen Abdomen: Soft, Non distended, Other (Mild epigastric and left upper quadrant tenderness. 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, No motor deficit, No sensory deficit, Normal speech - Psych Psych: Normal mood, Normal affect Results - Vitals Vitals: Vital Signs - 24 hr 04/12/19 04/12/19 10:23 13:07 Temperature 37.1 C 36.7 C Heart Rate 87 73 Respiratory 15 18 Rate Blood Pressure 144/90 H 117/76 O2 Saturation 100 99 Oxygen O2 Source [Without Activity] Room air O2 Source Room air - Labs Labs: Laboratory Tests 04/12/19 10:45 Influenza A (Rapid) Negative Influenza B (Rapid) Negative PD MEDICAL DECISION MAKING - ED course Complexity details: reviewed old records, reviewed results, re-evaluated patient, considered differential, d/w patient ED course: Patient was worked up in the emergency department with influenza testing, which is found to be negative. She was treated with Zofran for her nausea.We have discussed home management of the symptoms, as well as usual indications for return. I have given the patient a work note. Departure - Departure Disposition: 01 Home, Self Care Clinical Impression: Viral syndrome Condition: Fair Instructions: ED Viral Syndrome Prescriptions: Ondansetron Odt [Zofran Odt] 4 mg TL Q6H PRN #10 tablet PRN Reason: Nausea / Vomiting Comments: Your influenza test was negative. Most likely, you have 1 of the many viruses that go around this time of year.This is a self-limited illness, which cannot be helped by antibiotics. Your body has to fight the virus off on its own. Getting plenty of rest and fluids will help with this. Additionally, you may take the Zofran as needed for nausea, and Tylenol and ibuprofen as needed for body aches and fevers. I have given you a work note for the next few days; however, if you are feeling better sooner, you may return to work. Discharge Date/Time: 04/12/19 13:52
[2019-04-12 13:07] VITALS: BP 117/76
== END 2019-04-12 13:52 | disposition home or self-care (01) ==
LOC: ED 10:14
DX: B34.9 Viral infection, unspecified (principal); I10 Essential (primary) hypertension; E11.9 Type 2 diabetes mellitus without complications; Z79.84 Long term (current) use of oral hypoglycemic drugs
CPT/HCPCS: 87275; 87276; 99283; 99284; Q0162

== ENCOUNTER 2019-04-30 08:00 | Outpatient (CLI) | payer BC ==
[2019-04-30 12:51] LABS: BASOPHILS # (AUTO) 0.1 10^3/uL (0.0-0.1); BASOPHILS % (AUTO) 1.1 %; EOSINOPHILS # (AUTO) 0.1 10^3/uL (0.0-0.7); EOSINOPHILS % (AUTO) 2.2 %; HGB - HEMOGLOBIN 11.7 g/dL (12.0-16.0); LYMPHOCYTES # (AUTO) 1.2 10^3/uL (1.5-3.5); LYMPHOCYTES % (AUTO) 18.8 %; MEAN CORPUSCULAR HEMOGLOBIN 27.5 pg (27.0-31.0); MEAN CORPUSCULAR HGB CONC 30.5 g/dL (32.0-36.0); MEAN CORPUSCULAR VOLUME 90.1 fL (81.0-99.0); MEAN PLATELET VOLUME 11.4 fL (7.9-10.8); MONOCYTES # (AUTO) 0.4 10^3/uL (0.0-1.0); MONOCYTES % (AUTO) 5.4 %; NEUTROPHILS # (AUTO) 4.7 10^3/uL (1.5-6.6); NEUTROPHILS % (AUTO) 72.2 %; PLT - PLATELET COUNT 260 10^3/uL (130-450); RED BLOOD COUNT 4.26 10^6/uL (4.20-5.40); RED CELL DISTRIBUTION WIDTH 13.3 % (12.0-15.0); WHITE BLOOD COUNT 6.4 x10^3/uL (4.8-10.8)
[2019-04-30 12:53] LABS: HB2 TOTAL 12.2 g/dL; HEMOGLOBIN A1C 0.54 g/dL; HEMOGLOBIN A1C % 6.2 % (4.6-6.2)
[2019-04-30 13:00] LABS: CREATININE,URINE 226.7 mg/dL
[2019-04-30 13:01] LABS: ALBUMIN 4.5 g/dL (3.2-5.5); ALBUMIN/GLOBULIN RATIO 1.5 (1.0-2.2); ALKALINE PHOSPHATASE 44 IU/L (42-121); ALT ALANINE AMINOTRANSFERASE 15 IU/L (10-60); AST ASPARTATE AMINOTRANSFERASE 18 IU/L (10-42); BILIRUBIN,TOTAL 0.3 mg/dL (0.2-1.0); BUN - BLOOD UREA NITROGEN 14 mg/dL (6-20); CALCIUM 9.3 mg/dL (8.5-10.3); CARBON DIOXIDE - CO2 26 mmol/L (21-32); CHLORIDE 105 mmol/L (101-111); CHOL/HDL RATIO 3.4 (<4.4); CHOLESTEROL 210 mg/dL; CREATININE 0.8 mg/dL (0.4-1.0); GFR - MDRD 89 (>89); GLUCOSE 109 mg/dL (70-100); HDL CHOLESTEROL 61 mg/dL; LDL CHOLESTEROL,CALCULATED 139 mg/dL; LDL/HDL RATIO 2.3 (<4.4); SODIUM 139 mmol/L (135-145); TOTAL PROTEIN 7.6 g/dL (6.7-8.2); VLDL CHOLESTEROL 10 mg/dL
== END 2019-04-30 23:59 | disposition home or self-care (01) ==
LOC: LAB.WCP 08:00
PROVIDERS: ATTEND Family Medicine
DX: E11.9 Type 2 diabetes mellitus without complications (principal); E78.5 Hyperlipidemia, unspecified
CPT/HCPCS: 36415; 80053; 80061; 82570; 83036; 83721; 84156; 84443; 85025

== ENCOUNTER 2019-04-30 09:52 | Outpatient (CLI) | payer BC ==
--- NOTE | 2019-04-30 11:05 | Mammography Report ---
Reason: ROUTINE MAMMO Procedure Date: 04/30/2019 Accession Number: [id number] / [id number] Procedure: [facility] - Screening Mammo w/Herman CPT Code: Final Report FULL RESULT: EXAM: Screening Mammo w/Herman DATE: 04/30/2019 10:27 AM CLINICAL HISTORY: New baseline. Late childbearing. TECHNIQUE: (B) - Bilateral CC and MLO views were obtained. COMPARISON: None PARENCHYMAL PATTERN: (A) - The breasts demonstrate scattered fibroglandular densities bilaterally. FINDINGS: There are no suspicious masses, calcifications, skin thickening, or areas of distortion. IMPRESSION: Negative examination. BI-RADS category 1. RECOMMENDATION: (ANNUAL) - Recommend routine annual screening mammography. BI-RADS CATEGORY: (1) - Negative. STANDARD QUALIFYING STATEMENTS: 1. This examination was not reviewed with the aid of Computer-Aided Detection (CAD). 2. A negative or benign imaging report should not preclude biopsy if clinically suspicious findings are present. 3. Dense breasts may obscure an underlying neoplasm. 4. This examination was reviewed with the aid of 3D breast imaging (tomosynthesis).
== END 2019-04-30 09:53 | disposition home or self-care (01) ==
LOC: DI.N 09:52
DX: Z12.31 Encounter for screening mammogram for malignant neoplasm of breast (principal)
CPT/HCPCS: 77063; 77067

== ENCOUNTER 2020-05-29 07:20 | Outpatient (CLI) | payer BC ==
[2020-05-29 12:20] LABS: ALBUMIN 4.3 g/dL (3.2-5.5); ALBUMIN/GLOBULIN RATIO 1.5 (1.0-2.2); ALKALINE PHOSPHATASE 50 IU/L (42-121); ALT ALANINE AMINOTRANSFERASE 13 IU/L (10-60); AST ASPARTATE AMINOTRANSFERASE 14 IU/L (10-42); BILIRUBIN,TOTAL 0.8 mg/dL (0.2-1.0); BUN - BLOOD UREA NITROGEN 14 mg/dL (6-20); CALCIUM 9.5 mg/dL (8.5-10.3); CARBON DIOXIDE - CO2 27 mmol/L (21-32); CHLORIDE 105 mmol/L (101-111); CHOL/HDL RATIO 3.8 (<4.4); CHOLESTEROL 185 mg/dL; CREATININE 0.8 mg/dL (0.4-1.0); GFR - MDRD 89 (>89); GLUCOSE 98 mg/dL (70-100); HDL CHOLESTEROL 49 mg/dL; LDL CHOLESTEROL,CALCULATED 125 mg/dL; LDL/HDL RATIO 2.6 (<4.4); POTASSIUM 3.8 mmol/L (3.5-5.0); SODIUM 141 mmol/L (135-145); TOTAL PROTEIN 7.1 g/dL (6.7-8.2); TRIGLYCERIDES 56 mg/dL; VLDL CHOLESTEROL 11 mg/dL
[2020-05-29 12:36] LABS: THYROID STIMULATING HORMONE 2.06 uIU/mL (0.34-5.60)
[2020-05-29 13:02] LABS: ESTIMATED AVERAGE GLUCOSE 134 mg/dL (70-100); HEMOGLOBIN A1c% 6.3 % (4.27-6.07)
[2020-05-29 13:11] LABS: BASOPHILS % (AUTO) 0.8 %; EOSINOPHILS # (AUTO) 0.1 10^3/uL (0.0-0.7); EOSINOPHILS % (AUTO) 1.4 %; HCT - HEMATOCRIT 36.6 % (37.0-47.0); HGB - HEMOGLOBIN 11.2 g/dL (12.0-16.0); LYMPHOCYTES # (AUTO) 1.6 10^3/uL (1.5-3.5); LYMPHOCYTES % (AUTO) 31.5 %; MEAN CORPUSCULAR HEMOGLOBIN 27.3 pg (27.0-31.0); MEAN CORPUSCULAR HGB CONC 30.6 g/dL (32.0-36.0); MEAN CORPUSCULAR VOLUME 89.3 fL (81.0-99.0); MEAN PLATELET VOLUME 12.2 fL (7.9-10.8); MONOCYTES # (AUTO) 0.3 10^3/uL (0.0-1.0); MONOCYTES % (AUTO) 5.8 %; NEUTROPHILS # (AUTO) 3.1 10^3/uL (1.5-6.6); NEUTROPHILS % (AUTO) 60.3 %; PLT - PLATELET COUNT 227 10^3/uL (130-450); RED CELL DISTRIBUTION WIDTH 13.1 % (12.0-15.0); WHITE BLOOD COUNT 5.2 x10^3/uL (4.8-10.8)
[2020-05-29 13:26] LABS: CREATININE,URINE 124.3 mg/dL; MICROALBUM/CREATININE RATIO,UR 3.2 ug/mg (<30.0); MICROALBUMIN,URINE 0.4 mg/dL (0-300.0)
== END 2020-05-29 23:59 | disposition home or self-care (01) ==
LOC: LAB.WCP 07:20
PROVIDERS: ATTEND Family Medicine
DX: I10 Essential (primary) hypertension (principal); E78.5 Hyperlipidemia, unspecified; E11.9 Type 2 diabetes mellitus without complications
CPT/HCPCS: 36415; 80053; 80061; 82043; 82570; 83036; 83721; 84443; 85025

== ENCOUNTER 2020-08-21 08:00 | Outpatient (CLI) | payer BC ==
[2020-08-21 13:11] LABS: BASOPHILS # (AUTO) 0.1 10^3/uL (0.0-0.1); BASOPHILS % (AUTO) 0.9 %; EOSINOPHILS # (AUTO) 0.1 10^3/uL (0.0-0.7); EOSINOPHILS % (AUTO) 0.9 %; HGB - HEMOGLOBIN 11.2 g/dL (12.0-16.0); LYMPHOCYTES # (AUTO) 1.6 10^3/uL (1.5-3.5); LYMPHOCYTES % (AUTO) 27.7 %; MEAN CORPUSCULAR HEMOGLOBIN 27.3 pg (27.0-31.0); MEAN CORPUSCULAR HGB CONC 30.3 g/dL (32.0-36.0); MEAN CORPUSCULAR VOLUME 90.2 fL (81.0-99.0); MONOCYTES # (AUTO) 0.3 10^3/uL (0.0-1.0); MONOCYTES % (AUTO) 5.8 %; NEUTROPHILS # (AUTO) 3.7 10^3/uL (1.5-6.6); NEUTROPHILS % (AUTO) 64.5 %; PLT - PLATELET COUNT 232 10^3/uL (130-450); RED CELL DISTRIBUTION WIDTH 13.7 % (12.0-15.0); WHITE BLOOD COUNT 5.7 x10^3/uL (4.8-10.8)
[2020-08-21 13:24] LABS: ESTIMATED AVERAGE GLUCOSE 134 mg/dL (70-100); HEMOGLOBIN A1c% 6.3 % (4.27-6.07)
[2020-08-21 14:05] LABS: ALBUMIN 4.4 g/dL (3.2-5.5); ALBUMIN/GLOBULIN RATIO 1.3 (1.0-2.2); ALKALINE PHOSPHATASE 50 IU/L (42-121); ALT ALANINE AMINOTRANSFERASE 14 IU/L (10-60); AST ASPARTATE AMINOTRANSFERASE 18 IU/L (10-42); BILIRUBIN,TOTAL 0.7 mg/dL (0.2-1.0); BUN - BLOOD UREA NITROGEN 13 mg/dL (6-20); CALCIUM 9.6 mg/dL (8.5-10.3); CARBON DIOXIDE - CO2 27 mmol/L (21-32); CHLORIDE 106 mmol/L (101-111); CHOL/HDL RATIO 3.9 (<4.4); CHOLESTEROL 205 mg/dL; CREATININE 0.7 mg/dL (0.4-1.0); GFR - MDRD 104 (>89); GLUCOSE 101 mg/dL (70-100); HDL CHOLESTEROL 52 mg/dL; LDL CHOLESTEROL,CALCULATED 143 mg/dL; LDL/HDL RATIO 2.8 (<4.4); POTASSIUM 3.9 mmol/L (3.5-5.0); SODIUM 144 mmol/L (135-145); TOTAL PROTEIN 7.7 g/dL (6.7-8.2); TRIGLYCERIDES 51 mg/dL; VLDL CHOLESTEROL 10 mg/dL
[2020-08-21 14:10] LABS: CRP - C-REACTIVE PROTEIN < 1.0 mg/dL (0-1.0)
[2020-08-21 14:13] LABS: THYROID STIMULATING HORMONE 0.91 uIU/mL (0.34-5.60)
[2020-08-21 14:20] LABS: CREATININE,URINE 240.9 mg/dL; MICROALBUM/CREATININE RATIO,UR 3.3 ug/mg (<30.0); MICROALBUMIN,URINE 0.8 mg/dL (0-300.0)
== END 2020-08-21 23:59 | disposition home or self-care (01) ==
LOC: LAB.WCP 08:00
PROVIDERS: ATTEND Family Medicine
DX: E11.9 Type 2 diabetes mellitus without complications (principal); G62.9 Polyneuropathy, unspecified
CPT/HCPCS: 36415; 80053; 80061; 82043; 82570; 82607; 83036; 83721; 84443; 85025; 85651; 86140

== ENCOUNTER 2021-01-05 08:03 | Outpatient (CLI) | payer BC ==
[2021-01-05 12:44] LABS: BASOPHILS # (AUTO) 0.1 10^3/uL (0.0-0.1); BASOPHILS % (AUTO) 1.5 %; EOSINOPHILS # (AUTO) 0.1 10^3/uL (0.0-0.7); EOSINOPHILS % (AUTO) 1.7 %; HCT - HEMATOCRIT 40.3 % (37.0-47.0); HGB - HEMOGLOBIN 12.3 g/dL (12.0-16.0); LYMPHOCYTES # (AUTO) 1.4 10^3/uL (1.5-3.5); LYMPHOCYTES % (AUTO) 27.3 %; MEAN CORPUSCULAR HEMOGLOBIN 27.6 pg (27.0-31.0); MEAN CORPUSCULAR HGB CONC 30.5 g/dL (32.0-36.0); MEAN CORPUSCULAR VOLUME 90.6 fL (81.0-99.0); MONOCYTES # (AUTO) 0.4 10^3/uL (0.0-1.0); MONOCYTES % (AUTO) 8.5 %; NEUTROPHILS # (AUTO) 3.1 10^3/uL (1.5-6.6); NEUTROPHILS % (AUTO) 60.6 %; PLT - PLATELET COUNT 246 10^3/uL (130-450); RED BLOOD COUNT 4.45 10^6/uL (4.20-5.40); RED CELL DISTRIBUTION WIDTH 13.2 % (12.0-15.0); WHITE BLOOD COUNT 5.2 x10^3/uL (4.8-10.8)
[2021-01-05 12:45] LABS: ALBUMIN 4.9 g/dL (3.2-5.5); ALBUMIN/GLOBULIN RATIO 1.8 (1.0-2.2); ALKALINE PHOSPHATASE 54 IU/L (42-121); ALT ALANINE AMINOTRANSFERASE 13 IU/L (10-60); AST ASPARTATE AMINOTRANSFERASE 18 IU/L (10-42); BILIRUBIN,TOTAL 0.8 mg/dL (0.2-1.0); BUN - BLOOD UREA NITROGEN 14 mg/dL (6-20); CALCIUM 9.4 mg/dL (8.5-10.3); CARBON DIOXIDE - CO2 28 mmol/L (21-32); CHLORIDE 103 mmol/L (101-111); CHOL/HDL RATIO 4.7 (<4.4); CHOLESTEROL 232 mg/dL; CREATININE 0.8 mg/dL (0.4-1.0); ESTIMATED AVERAGE GLUCOSE 134 mg/dL (70-100); GFR - MDRD 89 (>89); GLUCOSE 110 mg/dL (70-100); HDL CHOLESTEROL 49 mg/dL; HEMOGLOBIN A1c% 6.3 % (4.27-6.07); LDL CHOLESTEROL,CALCULATED 172 mg/dL; LDL/HDL RATIO 3.5 (<4.4); SODIUM 140 mmol/L (135-145); TOTAL PROTEIN 7.6 g/dL (6.7-8.2); TRIGLYCERIDES 54 mg/dL; VLDL CHOLESTEROL 11 mg/dL
[2021-01-05 12:59] LABS: CREATININE,URINE 137.3 mg/dL; MICROALBUM/CREATININE RATIO,UR 5.8 ug/mg (<30.0); MICROALBUMIN,URINE 0.8 mg/dL (0-300.0)
== END 2021-01-05 23:59 | disposition home or self-care (01) ==
LOC: LAB.WCP 08:03
PROVIDERS: ATTEND Family Medicine
DX: E11.9 Type 2 diabetes mellitus without complications (principal)
CPT/HCPCS: 36415; 80053; 80061; 82043; 82570; 83036; 83721; 85025

== ENCOUNTER 2021-05-27 07:36 | Outpatient (CLI) | payer BC ==
[2021-05-27 12:03] LABS: BASOPHILS # (AUTO) 0.1 10^3/uL (0.0-0.1); BASOPHILS % (AUTO) 0.9 %; EOSINOPHILS # (AUTO) 0.1 10^3/uL (0.0-0.7); EOSINOPHILS % (AUTO) 1.3 %; HCT - HEMATOCRIT 38.2 % (37.0-47.0); HGB - HEMOGLOBIN 12.4 g/dL (12.0-16.0); LYMPHOCYTES # (AUTO) 1.6 10^3/uL (1.5-3.5); LYMPHOCYTES % (AUTO) 23.4 %; MEAN CORPUSCULAR HEMOGLOBIN 28.6 pg (27.0-31.0); MEAN CORPUSCULAR HGB CONC 32.5 g/dL (32.0-36.0); MONOCYTES # (AUTO) 0.4 10^3/uL (0.0-1.0); MONOCYTES % (AUTO) 5.7 %; NEUTROPHILS # (AUTO) 4.7 10^3/uL (1.5-6.6); NEUTROPHILS % (AUTO) 68.6 %; PLT - PLATELET COUNT 242 10^3/uL (130-450); RED BLOOD COUNT 4.34 10^6/uL (4.20-5.40); RED CELL DISTRIBUTION WIDTH 13.2 % (12.0-15.0); WHITE BLOOD COUNT 6.9 x10^3/uL (4.8-10.8)
[2021-05-27 12:45] LABS: ALBUMIN 4.8 g/dL (3.2-5.5); ALBUMIN/GLOBULIN RATIO 1.5 (1.0-2.2); ALKALINE PHOSPHATASE 52 IU/L (42-121); ALT ALANINE AMINOTRANSFERASE 14 IU/L (10-60); AST ASPARTATE AMINOTRANSFERASE 18 IU/L (10-42); BILIRUBIN,TOTAL 0.9 mg/dL (0.2-1.0); BUN - BLOOD UREA NITROGEN 14 mg/dL (6-20); CALCIUM 9.9 mg/dL (8.5-10.3); CARBON DIOXIDE - CO2 27 mmol/L (21-32); CHLORIDE 102 mmol/L (101-111); CHOL/HDL RATIO 4.3 (<4.4); CHOLESTEROL 217 mg/dL; CREATININE 0.8 mg/dL (0.4-1.0); GFR - MDRD 89 (>89); GLUCOSE 125 mg/dL (70-100); HDL CHOLESTEROL 50 mg/dL; LDL CHOLESTEROL,CALCULATED 153 mg/dL; LDL/HDL RATIO 3.1 (<4.4); POTASSIUM 4.3 mmol/L (3.5-5.0); SODIUM 140 mmol/L (135-145); TOTAL PROTEIN 8.1 g/dL (6.7-8.2); TRIGLYCERIDES 70 mg/dL; VLDL CHOLESTEROL 14 mg/dL
[2021-05-27 13:16] LABS: CREATININE,URINE 160.5 mg/dL; MICROALBUM/CREATININE RATIO,UR 5.6 ug/mg (<30.0); MICROALBUMIN,URINE 0.9 mg/dL (0-300.0)
== END 2021-05-27 07:37 | disposition home or self-care (01) ==
LOC: LAB.N 07:36
PROVIDERS: ATTEND Family Medicine
DX: E11.9 Type 2 diabetes mellitus without complications (principal)
CPT/HCPCS: 36415; 80053; 80061; 81599; 82043; 82570; 83036; 83721; 85025